=== PATIENT | male | born 1990 | race Caucasian/White ===

== ENCOUNTER 2018-10-29 14:04 | Emergency (ER) | payer MEDICAID ==
[2018-10-29] MEDS: KETOROLAC 30 MG INJ IM (16:38)
== END 2018-10-29 17:15 | disposition home or self-care (01) ==
LOC: FTE 14:04
DX: S39.012A Strain of muscle, fascia and tendon of lower back, initial encounter (principal); X50.0XXA Overexertion from strenuous movement or load, initial encounter; Y92.9 Unspecified place or not applicable
CPT/HCPCS: 96372; 99284-25